=== PATIENT | male | born 1985 | race Hispanic/Latino ===

== ENCOUNTER 2019-12-31 20:30 | Emergency (ER) | payer SELFPAY ==
[2019-12-31 20:56] LABS: #Basophils 0.1 thou/uL (0.0-0.2); #Eosinphils 0.3 thou/uL (0.0-0.7); #Lymphocytes 4.1 thou/uL (1.20-3.40); #Monocytes 0.8 thou/uL (0.11-0.59); #Neutrophils 3.8 thou/uL (1.40-6.50); %Basophils 1.1 % (0.0-1.0); %Eosinophils 3.3 % (0.0-10.0); %Lymphocytes 45.2 % (21.0-51.0); %Neutrophils 41.5 % (42.0-75.0); Hemoglobin 16.1 g/dL (14.0-18.0); Mean Corpuscular Hemoglobin 31.1 pg (27.0-31.0); Mean Corpuscular Volume 94.2 fL (78.0-98.0); Mean Platelet Volume 7.7 fL (7.4-10.4); Platelet Count 219 thou/uL (130-400); RBC Distribution Width 12.8 % (11.5-14.5); Red Blood Cell (RBC) Count 5.16 mill/uL (4.70-6.10); White Blood Cell (WBC) Count 9.2 thou/uL (4.8-10.8)
[2019-12-31 21:00] LABS: Bacteria/HPF None Seen HPF (None Seen); Bilirubin Negative (Negative); Blood, Urine 1+ (Negative); Clarity Clear (Clear); Glucose, Urine (Dipstick) Normal (Negative); Leukocyte Negative Leu/uL (Negative); Nitrite Negative (Negative); Protein, Urine (Dipstick) 30 mg/dL (Neg-Trace); RBC/HPF 0-3 HPF (0-3); Squamous Epithelial 0-3 HPF (0-3); WBC/HPF 0-3 HPF (0-3)
[2019-12-31 21:14] LABS: ALT (SGPT) 25 U/L (8-55); AST (SGOT) 31 U/L (5-34); Albumin 4.6 g/dL (3.5-5.0); Alkaline Phosphatase 55 U/L (40-110); Anion Gap 16 mmol/L (10-20); BUN (Urea Nitrogen) 18 mg/dL (8.9-20.6); Bilirubin, Total 0.5 mg/dL (0.2-1.2); Calc. Creatinine Clearance 0 mL/min (70-130); Calcium 8.9 mg/dL (7.8-10.44); Carbon Dioxide 22 mmol/L (22-29); Chloride 104 mmol/L (98-107); Estimated GFR-MDRD 67; Globulin 3.1 g/dL (2.4-3.5); Glucose 114 mg/dL (70-105); Potassium 3.4 mmol/L (3.5-5.1); Protein, Total 7.7 g/dL (6.0-8.3); Sodium 139 mmol/L (136-145)
[2019-12-31] MEDS ORDERED: Ketorolac Tromethamine 30 MG/ML VIAL ONE (21:39)
[2019-12-31] MEDS ORDERED: Ondansetron PF 4 MG/2 ML Vial ONE (21:39)
--- NOTE | 2020-01-01 06:23 | CT ---
CT ABDOMEN AND PELVIS WITHOUT CONTRAST: HISTORY: Flank pain an dysuria. COMPARISON: None. FINDINGS: Nodular gynecomastia bilaterally. No pericardial effusion. Very low grade right-sided hydroureteronephrosis with a 2 x 3 mm calculus within the urinary bladder. This is a recently passed stone. Minimal right sided perinephric stranding. No other right-sided shasha culus is appreciated. There is a punctate 2 x 2 mm calculus in the interpolar region of the left kidn ey. No left-sided hydroureteronephrosis. There are no dilated loops of large or small bowel. The appendix is visualized and is normal. IMPRESSION: 1. A small 3 x 2 mm calculus within the urinary bladder recently passed from the right ureter as ther e is low grade right-sided perinephric stranding and low grade right-sided ureteral dilatation. 2. A punctate 2 x 2 mm left interpolar renal calculus. No left-sided hydroureteronephrosis. 3. Incidental note of bilateral pars interarticularis defects at L5 without significant listhesis. POS: HOME
== END 2019-12-31 23:25 | disposition home or self-care (01) ==
LOC: ERS 20:30
DX: N20.0 Calculus of kidney (principal)
CPT/HCPCS: 36415; 74176; 80053; 81003; 81015; 85025; 96361; 96374; 96375; J1885; J2405